=== PATIENT | female | born 2000 | race Caucasian/White ===

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

== ENCOUNTER 2022-06-27 08:07 | Emergency (ER) | payer MEDICAID ==
[~2022-06-27 08:07] MED LIST changes: +ALBU6.7H14 INH; -ALBU6.7H9 INH
[2022-06-27] MEDS ORDERED: dexamethasone sod phosphate 10mg/ml inj IV STA (08:55)
[2022-06-27] MEDS ORDERED: ketorolac trometh inj. 60 MG/2 ML VIAL IM ONE (08:55)
[2022-06-27 09:13] LABS: CLARITY,URINE SLIGHTLY CLOUDY (Clear); COLOR,URINE YELLOW (Yellow); GLUCOSE, URINE NEGATIVE (Neg); KETONES,URINE NEGATIVE (Neg); LEUKOCYTE ESTERASE ,URINE NEGATIVE (Neg); NITRITES, URINE NEGATIVE (Neg); OCCULT BLOOD,URINE NEGATIVE (Neg); PROTEIN,URINE NEGATIVE (Neg); UROBILINOGEN,URINE 0.2 E.U/dL (0.2-1.0)
[2022-06-27 09:15] LABS: URINE HCG NEGATIVE (NEG)
--- NOTE | 2022-06-27 09:16 | NUR ---
off to xray
[2022-06-27 09:17] LABS: UA COLLECTION TYPE CLN CATCH MIDSTREAM
[2022-06-27 09:18] LABS: BACTERIA,URINE NONE SEEN /HPF (Neg); MUCUS STRANDS FEW /LPF (Neg); RBC,URINE NONE SEEN /HPF (0-2); SQUAMOUS EPITHELIAL CELL,UR FEW /LPF (FEW); WBC,URINE NONE SEEN /HPF (0-4)
[2022-06-27] MEDS ORDERED: IBUP-1986 PO ×3 (09:52→10:45)
[2022-06-27] MEDS ORDERED: TRAM1TAB7 PO ×3 (09:52→10:45)
[2022-06-27 10:11] VITALS: BP 124/68
== END 2022-06-27 10:17 | disposition home or self-care (01) ==
LOC: ER 08:08
DX: M54.41 Lumbago with sciatica, right side (principal); M25.551 Pain in right hip; G89.29 Other chronic pain; F31.9 Bipolar disorder, unspecified; Z90.89 Acquired absence of other organs; Z79.899 Other long term (current) drug therapy; Z98.890 Other specified postprocedural states
CPT/HCPCS: 72100; 81001; 81025; 96372; 96374; 99284; J1100; J1885

== ENCOUNTER 2022-08-15 08:11 | Emergency (ER) | payer MEDICAID ==
[~2022-08-15] VITALS: Ht 162.6 cm; Wt 95.0 kg
[~2022-08-15 08:11] MED LIST changes: +IBUP-1986 PO; +TRAM1TAB7 PO
[2022-08-15 08:16] VITALS: BP 130/72
[2022-08-15] MEDS ORDERED: IBUP-1986 PO (09:57)
[2022-08-15] MEDS ORDERED: TRAM50TA2 PO (09:57)
== END 2022-08-15 10:08 | disposition home or self-care (01) ==
LOC: ER 08:11
DX: M79.605 Pain in left leg (principal); G89.29 Other chronic pain; F31.9 Bipolar disorder, unspecified; Z90.89 Acquired absence of other organs; Z79.899 Other long term (current) drug therapy
CPT/HCPCS: 29505; 99283

== ENCOUNTER 2022-09-19 13:32 | Emergency (ER) | payer MEDICAID ==
[~2022-09-19] VITALS: Ht 165.1 cm; Wt 92.0 kg
[2022-09-19 13:37] VITALS: BP 108/68
[2022-09-19 14:10] LABS: CLARITY,URINE CLOUDY (Clear); COLOR,URINE YELLOW (Yellow); GLUCOSE, URINE NEGATIVE (Neg); KETONES,URINE TRACE mg/dl (Neg); LEUKOCYTE ESTERASE ,URINE NEGATIVE (Neg); NITRITES, URINE NEGATIVE (Neg); OCCULT BLOOD,URINE NEGATIVE (Neg); PROTEIN,URINE NEGATIVE (Neg); URINE HCG NEGATIVE (NEG)
[2022-09-19 14:22] LABS: UA COLLECTION TYPE CLN CATCH MIDSTREAM
[2022-09-19 14:23] LABS: MUCUS STRANDS MANY /LPF (Neg); SQUAMOUS EPITHELIAL CELL,UR MANY /LPF (FEW)
[2022-09-19 14:25] LABS: BACTERIA,URINE 2+ /HPF (Neg); RBC,URINE 0-2 /HPF (0-2)
--- NOTE | 2022-09-19 14:27 | NUR ---
URINE REJECTED FOR CULTURE
[2022-09-19 15:12] LABS: BASOPHILS # (AUTO) 0.1 X10'3 (0-0.2); BASOPHILS % (AUTO) 1.4 % (0-1); EOSINOPHILS # (AUTO) 0.2 X10'3 (0-0.9); EOSINOPHILS % (AUTO) 3.3 % (0-6); HEMATOCRIT 43.5 % (35.0-45.0); HEMOGLOBIN 14.4 g/dl (12.0-16.0); LYMPHOCYTES # (AUTO) 2.2 X10'3 (1.1-4.8); LYMPHOCYTES % (AUTO) 38.5 % (21-51); MEAN CORPUSCULAR HEMOGLOBIN 29.2 PG (27.0-31.0); MEAN CORPUSCULAR VOLUME 88.4 FL (78-98); MEAN PLATELET VOLUME 8.9 FL (7.4-10.4); MONOCYTES # (AUTO) 0.3 X10'3 (0-0.9); MONOCYTES % (AUTO) 5.5 % (2-12); NEUTROPHILS % (AUTO) 51.3 % (42-75); PLATELET COUNT 265 X10'3 (140-440); RED BLOOD COUNT 4.92 X10'6 (4.20-5.60); RED CELL DISTRIBUTION WIDTH 14.2 % (11.5-14.5); WHITE BLOOD COUNT 5.8 X10'3 (4.5-11.0)
[2022-09-19 15:29] LABS: ALANINE AMINOTRANSFERASE 14 U/L (12-78); ALBUMIN 4.1 G/DL (3.4-5.0); ALBUMIN/GLOBULIN RATIO 1.2 (1.1-1.5); ANION GAP 8 (8-16); ASPARTATE AMINO TRANSFERASE 13 U/L (10-37); BILIRUBIN,TOTAL 0.6 MG/DL (0.1-1.0); BLOOD UREA NITROGEN 7 MG/DL (7-18); BUN/CREATININE RATIO 7.9 (10.0-20.0); CALCIUM 9.3 MG/DL (8.5-10.1); CHLORIDE 105 MMOL/L (99-107); CREATININE 0.89 MG/DL (0.40-0.90); GLUCOSE 86 MG/DL (70-104); LIPASE 129 U/L (73-393); POTASSIUM 4.5 MMOL/L (3.5-5.1); SODIUM 139 MMOL/L (135-145); TOTAL CARBON DIOXIDE 26.4 MMOL/L (24-32); TOTAL PROTEIN 7.4 G/DL (6.4-8.2); eGFR 81 ML/MIN
[2022-09-19 15:39] LABS: ALKALINE PHOSPHATASE 46 IU/L (20-180)
== END 2022-09-19 16:55 | disposition left against medical advice (07) ==
LOC: ER 13:32
DX: K59.00 Constipation, unspecified (principal); Z53.21 Procedure and treatment not carried out due to patient leaving prior to being seen by health care provider
CPT/HCPCS: 36415; 80053; 81001; 81025; 83690; 85025; 99281

== ENCOUNTER 2022-09-26 15:16 | Emergency (ER) | payer MEDICAID ==
[~2022-09-26] VITALS: Ht 162.6 cm; Wt 86.8 kg
[2022-09-26 15:22] VITALS: BP 93/64
== END 2022-09-26 17:52 | disposition home or self-care (01) ==
LOC: ER 15:17
DX: K59.00 Constipation, unspecified (principal); G89.29 Other chronic pain; F31.9 Bipolar disorder, unspecified; Z90.89 Acquired absence of other organs; Z79.899 Other long term (current) drug therapy
CPT/HCPCS: 74018; 99283

== ENCOUNTER 2023-07-07 08:10 | Emergency (ER) | payer MEDICAID ==
[~2023-07-07] VITALS: Ht 162.6 cm; Wt 97.3 kg
[2023-07-07 09:03] LABS: BASOPHILS # (AUTO) 0.1 X10'3 (0-0.2); EOSINOPHILS # (AUTO) 0.1 X10'3 (0-0.9); HEMATOCRIT 43.7 % (35.0-45.0); HEMOGLOBIN 14.7 g/dl (12.0-16.0); LYMPHOCYTES # (AUTO) 1.8 X10'3 (1.1-4.8); LYMPHOCYTES % (AUTO) 20.4 % (21-51); MEAN CORPUSCULAR HEMOGLOBIN 29.7 PG (27.0-31.0); MEAN CORPUSCULAR HGB CONC 33.6 g/dL (33.0-36.5); MEAN CORPUSCULAR VOLUME 88.4 FL (78-98); MEAN PLATELET VOLUME 8.5 FL (7.4-10.4); MONOCYTES # (AUTO) 0.5 X10'3 (0-0.9); MONOCYTES % (AUTO) 5.6 % (2-12); NEUTROPHILS # (AUTO) 6.4 X10'3 (1.8-7.7); PLATELET COUNT 296 X10'3 (140-440); RED BLOOD COUNT 4.94 X10'6 (4.20-5.60); RED CELL DISTRIBUTION WIDTH 13.5 % (11.5-14.5); WHITE BLOOD COUNT 8.9 X10'3 (4.5-11.0)
[2023-07-07 09:26] LABS: ALANINE AMINOTRANSFERASE 19 U/L (12-78); ALBUMIN 3.7 G/DL (3.4-5.0); ALBUMIN/GLOBULIN RATIO 0.9 (1.1-1.5); ALKALINE PHOSPHATASE 49 IU/L (46-116); ANION GAP 11 (8-16); ASPARTATE AMINO TRANSFERASE 13 U/L (10-37); BILIRUBIN,TOTAL 0.8 MG/DL (0.1-1.0); BLOOD UREA NITROGEN 8 MG/DL (7-18); BUN/CREATININE RATIO 9.8 (10.0-20.0); CALCIUM 8.8 MG/DL (8.5-10.1); CHLORIDE 105 MMOL/L (99-107); CREATININE 0.82 MG/DL (0.40-0.90); GLUCOSE 91 MG/DL (70-104); LIPASE 32 U/L (16-77); POTASSIUM 3.9 MMOL/L (3.5-5.1); SODIUM 141 MMOL/L (135-145); TOTAL CARBON DIOXIDE 25.2 MMOL/L (24-32); TOTAL PROTEIN 7.6 G/DL (6.4-8.2); eCRCL 94 ML/MIN; eGFR 88 ML/MIN
[2023-07-07 10:44] VITALS: BP 118/76; PULSE 84; RESP 16; TEMP 98.8; O2SAT 99
[2023-07-07] MEDS: ondansetron/PF 4mg/2ml inj IV ONE (10:48)
[2023-07-07] MEDS: normal saline 1000ML IV soln IVB ONE (11:32)
[2023-07-07] MEDS: metoclopramide 5 mg/ml inj IV ONE (11:33)
[2023-07-07] MEDS ORDERED: METO5TAB98 PO (11:41)
[2023-07-07] MEDS ORDERED: PANT40SU2 PO (11:41)
[2023-07-07 11:51] LABS: URINE HCG NEGATIVE (NEG)
[2023-07-07 11:57] LABS: BILIRUBIN,URINE NEGATIVE (Neg); CLARITY,URINE CLEAR (Clear); COLOR,URINE YELLOW (Yellow); GLUCOSE, URINE NEGATIVE (Neg); KETONES,URINE NEGATIVE (Neg); LEUKOCYTE ESTERASE ,URINE NEGATIVE (Neg); NITRITES, URINE NEGATIVE (Neg); OCCULT BLOOD,URINE NEGATIVE (Neg); PROTEIN,URINE NEGATIVE (Neg); UROBILINOGEN,URINE 0.2 E.U/dL (0.2-1.0)
[2023-07-07 12:02] LABS: UA COLLECTION TYPE CLN CATCH MIDSTREAM
[2023-07-07] MEDS ORDERED: famotidine 20MG/2.5ML oral suspension PO SCH (20:00)
== END 2023-07-07 12:26 | disposition home or self-care (01) ==
LOC: ER 08:10
DX: R11.2 Nausea with vomiting, unspecified (principal); Z79.899 Other long term (current) drug therapy
CPT/HCPCS: 36415; 80053; 81003; 81025; 83690; 85025; 96361; 96374; 96375; 99284; J2405; J2765; J7030

== ENCOUNTER 2024-07-04 19:47 | Emergency (ER) | payer MEDICAID ==
[~2024-07-04] VITALS: Ht 162.6 cm; Wt 78.6 kg
[~2024-07-04 19:47] MED LIST changes: +PANT40SU2 PO; +TRAM-528 PO; -TRAM1TAB7 PO
[2024-07-04 20:25] LABS: BASOPHILS # (AUTO) 0.1 X10'3 (0-0.2); BASOPHILS % (AUTO) 0.8 % (0-1); EOSINOPHILS # (AUTO) 0.2 X10'3 (0-0.9); HEMATOCRIT 39.6 % (35.0-45.0); HEMOGLOBIN 13.4 g/dl (12.0-16.0); LYMPHOCYTES # (AUTO) 3.7 X10'3 (1.1-4.8); LYMPHOCYTES % (AUTO) 48.7 % (21-51); MEAN CORPUSCULAR HEMOGLOBIN 30.5 PG (27.0-31.0); MEAN CORPUSCULAR HGB CONC 33.7 g/dL (33.0-36.5); MEAN CORPUSCULAR VOLUME 90.3 FL (78-98); MEAN PLATELET VOLUME 8.3 FL (7.4-10.4); MONOCYTES # (AUTO) 0.4 X10'3 (0-0.9); MONOCYTES % (AUTO) 5.1 % (2-12); NEUTROPHILS # (AUTO) 3.3 X10'3 (1.8-7.7); NEUTROPHILS % (AUTO) 43.4 % (42-75); PLATELET COUNT 295 X10'3 (140-440); RED BLOOD COUNT 4.39 X10'6 (4.20-5.60); WHITE BLOOD COUNT 7.5 X10'3 (4.5-11.0)
[2024-07-04 20:34] LABS: ALBUMIN 4.1 G/DL (3.4-5.0); ANION GAP 3 (8-16); BLOOD UREA NITROGEN 7 MG/DL (7-18); BUN/CREATININE RATIO 8.4 (10.0-20.0); CALCIUM 8.5 MG/DL (8.5-10.1); CHLORIDE 108 MMOL/L (99-107); CREATININE 0.83 MG/DL (0.40-0.90); GLUCOSE 90 MG/DL (70-104); LIPASE 38 U/L (16-77); POTASSIUM 3.4 MMOL/L (3.5-5.1); SODIUM 142 MMOL/L (135-145); TOTAL CARBON DIOXIDE 30.9 MMOL/L (24-32); eCRCL 92 ML/MIN; eGFR 86 ML/MIN
[2024-07-04 20:46] VITALS: BP 100/66; PULSE 77; RESP 19; TEMP 96.5; O2SAT 99
[2024-07-04 20:53] LABS: ALANINE AMINOTRANSFERASE 12 U/L (12-78); ALBUMIN/GLOBULIN RATIO 1.4 (1.1-1.5); ALKALINE PHOSPHATASE 48 IU/L (46-116); ASPARTATE AMINO TRANSFERASE 10 U/L (10-37); BILIRUBIN,TOTAL 0.7 MG/DL (0.1-1.0); TOTAL PROTEIN 7.1 G/DL (6.4-8.2)
[2024-07-04 20:59] LABS: URINE HCG NEGATIVE (NEG)
[2024-07-04 21:08] LABS: BILIRUBIN,URINE NEGATIVE (Neg); CLARITY,URINE CLEAR (Clear); COLOR,URINE YELLOW (Yellow); GLUCOSE, URINE NEGATIVE (Neg); KETONES,URINE 40 mg/dl (Neg); LEUKOCYTE ESTERASE ,URINE NEGATIVE (Neg); NITRITES, URINE NEGATIVE (Neg); OCCULT BLOOD,URINE NEGATIVE (Neg); PROTEIN,URINE NEGATIVE (Neg); UROBILINOGEN,URINE 0.2 E.U/dL (0.2-1.0)
[2024-07-04 21:19] LABS: UA COLLECTION TYPE CLN CATCH MIDSTREAM
[2024-07-04] MEDS ORDERED: ONDA-245 PO (21:30)
[2024-07-04] MEDS: ondansetron 4mg rapidly disintigrating tab PO ONE (21:38)
== END 2024-07-04 21:48 | disposition home or self-care (01) ==
LOC: ER 19:47
DX: R10.30 Lower abdominal pain, unspecified (principal); R10.2 Pelvic and perineal pain; F31.9 Bipolar disorder, unspecified; Z90.89 Acquired absence of other organs
CPT/HCPCS: 36415; 80053; 81003; 81025; 83690; 85025; 99283

== ENCOUNTER 2024-11-01 14:44 | Emergency (ER) | payer BC, MEDICAID ==
[~2024-11-01] VITALS: Ht 162.6 cm; Wt 72.1 kg
[~2024-11-01 14:44] MED LIST changes: +ONDA-245 PO
[2024-11-01 14:47] VITALS: BP 119/75; PULSE 95; O2SAT 100
[2024-11-01] MEDS: morphine 4 MG/ML inj SYRINge IM ONE (17:13)
--- NOTE | 2024-11-01 17:21 | Physician Documentation ---
History of Present Illness ~ Chief Complaint: Neck pain Stated Complaint: NECK PAIN Time Seen by MD: 16:25 Primary Medical Doctor: [facility] HPI This 24-year-old female presents with severe neck pain after injuring herself while on a water slide. She states she went down a water slide and unintentionally hyperextended her neck. It is initially she toughed it out but over the last two days she has had increased pain decreased range of motion. She does report some tingling in her tips of her fingers denies numbness. Day of Onset: Nov 01, 2024 Medication Reconciliation Allergies: Coded Allergies: No Known Allergies (Unverified , 11/01/24) Scheduled Albuterol Sulfate (Proventil Hfa), 2 PUFFS INH Q6H Ibuprofen (Ibuprofen), 1 TAB PO Q8H Ibuprofen (Ibuprofen), 1 TAB PO Q8H Nitrofurantoin Monohyd/M-Cryst (Macrobid 100 mg Capsule), 1 CAP PO Q12H Ondansetron 8mg ODT (Ondansetron Odt), 1 TAB PO Q6H Pantoprazole Sodium (Protonix), 40 MG PO DAILY Phenazopyridine HCl (Pyridium), 1 TAB PO Q8H Scheduled PRN Tramadol Hcl/Acetaminophen* (Ultracet*), 1 TAB PO Q6H PRN for pain Past Medical History Past Medical History: Bronchitis, UTI, Chronic Pain, Bipolar, Depression Past Surgical History: tonsillectomy Other Past Surgical History: myringotomy Smoking Status: Never smoker Alcohol Use: None Drug Use: none Lives with: Family Lives In: Home Occupation: child Review of Systems All Other Systems at this time: Reviewed and Negative ROS As stated above in the HPI, otherwise all systems are reviewed and negative. Physical Exam Vital Signs: Temperature: 98.5, Source: Temporal, Heart Rate: 95, Respiratory Rate: 16, BP: 119/75, Pulse Oximetry: 100, Weight: 72.100 Oxygen Flow Rate: 0 Physical Exam General: Alert, no apparent distress. . Neck: Decreased range of motion due to pain, no swelling no deformity Respiratory: Lungs clear, no respiratory distress. Extremities: Normal range of motion, no deformity. Neuro: intact Progress Results/Orders Results/Orders Orders - CHEMA VIDAL NP Ct Cervical Spine (11/01/24 16:35) Completed Orders - CHEMA VIDAL PATROL [employer] LIEUTENANT Ct Cervical Spine (11/01/24 16:35) Morphine 4mg/Ml Inj. (Morphine Inj.) (11/01/24 17:00) Ketorolac Trometh 30mg/Ml Vial (Toradol (11/01/24 17:30) Medications Received in ER Medications (Trade) Dose Ordered Sig/Mirella Route PRN Reason Start Time Stop Time Status Last Admin Dose Admin (morphine inj.) 4 mg ONCE ONCE IM 11/01/24 17:00 11/01/24 17:01 DC 11/01/24 17:13 4 MG (Toradol inj. 30mg/ml) 30 mg ONCE ONCE IM 11/01/24 17:30 11/01/24 17:32 DC 11/01/24 17:58 30 MG Vital Signs 11/01/24 11/01/24 11/01/24 14:47 17:13 17:58 Temp 98.5 Pulse 95 Resp 18 16 16 B/P (MAP) 119/75 Pulse Ox 100 O2 Flow Rate 0 Medical Decision Making Findings Patient's CT was unremarkable for acute fracture. Currently suspecting cervical strain or whiplash. However I do not believe she meets criteria for an emergent MRI at this time. This would be the next step of evaluation which I explained to the patient. Offered muscle relaxers which she agreed to Differential Dx:Considerations: Include: Cervical muscle spasm, Discitis, DJD, Meningitis, Thyroiditis, Torticollis, Vertebral artery dissect., Other Departure Impression: Primary Impression: Neck pain Additional Impressions: Strain of neck muscle Whiplash injury to neck Condition: Stable Discharge Instructions: Whiplash, Cervical Sprain Additional Instructions: If your symptoms do persist beyond a week I recommend following up with primary care and requested an MRI. You may also benefit from a referral to physical therapy to help with the your symptoms Referrals: NO PRIMARY CARE PROVIDER (PCP) Prescriptions Cyclobenzaprine HCl (Cyclobenzaprine HCl) 10 Mg Tablet 1 TAB PO Q8H for muscle spasms for 10 Days, #30 TAB Prov: CHEMA VIDAL [employer] 11/01/24 Education Educated: Patient Educated regarding: diagnosis Signature Scribe Signature: f Attestation: Scribed for Chema Vidal Quality Control Associate by Chema Vidal - KRISTOPHER . 11/01/24 18:16 CHEMA VIDAL NP Nov 01, 2024 17:21
--- NOTE | 2024-11-01 17:49 | RADIOLOGY REPORT ---
EXAM: CT CT CERVICAL SPINE INDICATION: hyperextension injury EXAM DATE: 11/01/2024 05:01 PM COMPARISON: None TECHNIQUE: Multiple axial CT images of the cervical spine were obtained using bone algorithm. Axial a nd coronal reformatting was done. Bone and soft tissue windows were reviewed. Radiation Dose Information: CT Dose: CTDI volume is 18.4 mGy. Dose-length product is 389 mGy*cm FINDINGS: The cervical alignment is intact. No acute cervical spine fracture is identified. The vertebral body heights are intact. No suspicious osseous lesions are identified. No significant degenerative changes are identified. There is no prevertebral soft tissue swelling. IMPRESSION: 1. No evidence of acute cervical spine fracture or traumatic malalignment. All CT scans at this medical facility are performed using dose modulation techniques as appropriate t o a performed exam including the following: Automated exposure control was utilized; adjustment of th e MA and/or KV according to patient size; and use of iterative reconstruction technique.
[2024-11-01 17:58] VITALS: RESP 16
[2024-11-01] MEDS: ketorolac trometh 30MG/ML vial 30 MG/ML VIAL IM ONE (17:58)
[2024-11-01] MEDS ORDERED: CYCL-394 PO (18:15)
[2024-11-01 18:29] VITALS: TEMP 98.5
== END 2024-11-02 07:51 | disposition home or self-care (01) ==
LOC: ER 14:45
DX: S16.1XXA Strain of muscle, fascia and tendon at neck level, initial encounter (principal); S13.4XXA Sprain of ligaments of cervical spine, initial encounter; F31.9 Bipolar disorder, unspecified; Z79.899 Other long term (current) drug therapy; X50.1XXA Overexertion from prolonged static or awkward postures, initial encounter; Y93.89 Activity, other specified; Y92.89 Other specified places as the place of occurrence of the external cause; Y99.8 Other external cause status
CPT/HCPCS: 72125; 96372; 99285; J1885; J2270

== ENCOUNTER 2025-01-15 10:36 | Emergency (ER) | payer BC, MEDICAID ==
[~2025-01-15] VITALS: Ht 163.8 cm; Wt 67.7 kg
[2025-01-15 11:20] LABS: MEAN PLATELET VOLUME 8.1 FL (7.4-10.4); RED CELL DISTRIBUTION WIDTH 13.4 % (11.5-14.5)
[2025-01-15 11:29] LABS: URINE HCG NEGATIVE (NEG)
[2025-01-15 11:30] LABS: LEUKOCYTE ESTERASE ,URINE NEGATIVE (Neg); NITRITES, URINE NEGATIVE (Neg); OCCULT BLOOD,URINE NEGATIVE (Neg)
[2025-01-15 11:34] LABS: UA COLLECTION TYPE CLN CATCH MIDSTREAM
[2025-01-15 11:39] LABS: CREATININE 0.80 MG/DL (0.40-0.90); TOTAL CARBON DIOXIDE 29.2 MMOL/L (24-32); eCRCL 97 ML/MIN; eGFR 90 ML/MIN
--- NOTE | 2025-01-15 12:12 | Physician Documentation ---
History of Present Illness Chief Complaint: Abdominal Pain Stated Complaint: ABDOMINAL PAIN Primary Medical Doctor: [facility] REPLACED BY [facility] HPI This is a 24-year-old female who presents with three days of progressively worsening abdominal pain beginning in her periumbilical area and spreading to her right lower quadrant and epigastric region, patient reports pain is worse with walking or any bumps reporting every bump in the car on the way over made it hurt. Patient denies any fevers. Denies any recent history of constipation.. States that she was seen at her urgent care and was advised to come to the ER for evaluation appendicitis Medication Reconciliation Allergies: Coded Allergies: No Known Allergies (Unverified , 01/15/25) Scheduled Albuterol Sulfate (Proventil Hfa), 2 PUFFS INH Q6H Ibuprofen (Ibuprofen), 1 TAB PO Q8H Ibuprofen (Ibuprofen), 1 TAB PO Q8H Nitrofurantoin Monohyd/M-Cryst (Macrobid 100 mg Capsule), 1 CAP PO Q12H Ondansetron 8mg ODT (Ondansetron Odt), 1 TAB PO Q6H Pantoprazole Sodium (Protonix), 40 MG PO DAILY Phenazopyridine HCl (Pyridium), 1 TAB PO Q8H Scheduled PRN Tramadol Hcl/Acetaminophen* (Ultracet*), 1 TAB PO Q6H PRN for pain Past Medical History Past Medical History: Bronchitis, UTI, Chronic Pain, Bipolar, Depression Past Surgical History: tonsillectomy Other Past Surgical History: myringotomy Alcohol Use: None Drug Use: none Lives with: Family Lives In: Home Occupation: child Review of Systems ROS As stated above in the HPI, otherwise all systems are reviewed and negative. Physical Exam Vital Signs: Temperature: 97.6, Source: Oral, Heart Rate: 93, Respiratory Rate: 17, BP: 111/64, Pulse Oximetry: 100, Weight: 67.730 Physical Exam VITALS: Reviewed and as above. GENERAL: Alert, nontoxic appearing, no apparent distress. HEENT: RESPIRATORY: No increased work of breathing, no respiratory distress, speaking in full clear sentences CHEST: CV: BACK: GI: Positive rosving, nnegative rebound tenderness in the right lower quadrant MUSCULOSKELETAL: SKIN: NEURO: PSYCH: Progress Results/Orders Results/Orders Orders - CHRISTEN,RG W HAIR WORKER Us Non Vascular (01/15/25 ) Vital Signs 01/15/25 10:44 Temp 97.6 Pulse 93 Resp 17 B/P (MAP) 111/64 Pulse Ox 100 Laboratory Tests Test 01/15/25 10:48 01/15/25 11:01 Urine Specimen Description Cln catch midstream Urine Color Yellow Urine Clarity Clear Urine pH 5.5 Urine Specific Shannon <=1.005 Urine Protein Negative Urine Glucose (UA) Negative Urine Ketones Negative Urine Occult Blood Negative Urine Nitrite Negative Urine Bilirubin Negative Urine Urobilinogen 0.2 Urine Leukocyte Esterase Negative Urine Culture Indicated Not ind Volume Urine Centrifuged 10 ml Urine HCG, Qualitative Negative Urine Comment White Blood Count 5.6 Red Blood Count 4.47 Hemoglobin 13.4 Hematocrit 40.2 Mean Corpuscular Volume 90.0 Mean Corpuscular Hemoglobin 29.9 Mean Corpuscular Hemoglobin Concent 33.2 Red Cell Distribution Width 13.4 Platelet Count 265 Mean Platelet Volume 8.1 Neutrophils (%) (Auto) 52.7 Lymphocytes (%) (Auto) 39.3 Monocytes (%) (Auto) 4.8 Eosinophils (%) (Auto) 2.5 Basophils (%) (Auto) 0.7 Neutrophils # (Auto) 2.9 Lymphocytes # (Auto) 2.2 Monocytes # (Auto) 0.3 Eosinophils # (Auto) 0.1 Basophils # (Auto) 0.0 CBC Comment Sodium Level 142 Potassium Level 4.1 Chloride Level 105 Carbon Dioxide Level 29.2 Anion Gap 8 Blood Urea Nitrogen 10 Creatinine 0.80 Estimated GFR/1.73 m2 90 BUN/Creatinine Ratio 12.5 Glucose Level 85 Calcium Level 9.1 Total Bilirubin 0.8 Aspartate Amino Transf (AST/SGOT) 10 Alanine Aminotransferase (ALT/SGPT) 14 Alkaline Phosphatase 41 L Total Protein 7.5 Albumin 4.2 Globulin 3.3 Albumin/Globulin Ratio 1.3 Lipase 53 Chemistry Comments Medical Decision Making Findings MSE performed in triage and patient returned to ED lobby by nursing staff to await available ED room. Labs and ultrasound ordered to be completed from lobby. This 24-year-old female initially presented with concerns of her pelvic pain and right lower quadrant pain. Ultrasound indicated there was no evidence of ovarian torsion there was good flow to both ovaries. CT abdomen and pelvis indicated there was no signs of appendicitis however they did make note of significant constipation Departure Disposition: 01 HOME / SELF CARE / HOMELESS Impression: Primary Impression: Constipation Condition: Improved Discharge Instructions: Constipation, Adult, [id number] Additional Instructions: You were evaluated for both ovarian and appendix pathology both of which were benign you did show evidence of gross constipation via your CT.. At this time I am going to discharge you with advice to maintain adequate hydration and take MiraLax until he started having regular stools Referrals: NO PRIMARY CARE PROVIDER (PCP) Prescriptions Polyethylene Glycol 3350* (Miralax*) 1 Packet Packet 1 PKT PO DAILY for constipation for 2 Days, #2 PKT dissolve in water Prov: WILFREDO VIDAL NP 01/15/25 Education Educated: Patient Signature Scribe Signature: f Attestation: Scribed for Wilfredo Vidal Bacteriology Professor by Wilfredo Vidal - KRISTOPHER . 01/15/25 12:51 RG VELÁSQUEZ HAIR WORKER Jan 15, 2025 12:12 WILFREDO VIDAL NP Jan 15, 2025 12:52
--- NOTE | 2025-01-15 13:03 | RADIOLOGY REPORT ---
INDICATION: Right Lower Abd/Pelvic Pain TECHNIQUE: Multiple real-time grayscale transabdominal sonographic images along with color and duplex Doppler of the uterus and ovaries were obtained. COMPARISON: None FINDINGS: The uterus measures 6.5 x 2.5 x 4.5 cm. The endometrial stripe measures 0.3 cm. Intrauterine device in satisfactory position. Right ovary measures 2.9 x 1.8 x 2.2 cm with normal Doppler color flow Left ovary measures 4.0 x 2.1 x 2.8 cm with normal Doppler color flow IMPRESSION: Intrauterine device in satisfactory position.
--- NOTE | 2025-01-15 13:03 | RADIOLOGY REPORT ---
INDICATION: RIGHT LOWER QUAD PAIN TECHNIQUE: Graded compression technique along with Multiple real-time sonographic images were obtained for evaluation of the right lower quadrant. FINDINGS: The appendix was not visualized. No free fluid or lymph nodes are seen on this exam. IMPRESSION: 1.Nonvisualization of the appendix, thus cannot exclude appendicitis.
[2025-01-15] MEDS ORDERED: iohexol 300mg/ml 100ml inj. ONE (13:16)
[2025-01-15] MEDS: ondansetron/PF 4mg/2ml inj IV ONE (15:21)
[2025-01-15] MEDS: morphine 4 MG/ML inj SYRINge IV ONE (15:21)
[2025-01-15] MEDS: normal saline 1000ML IV soln IVB ONE (15:21)
--- NOTE | 2025-01-15 15:23 | RADIOLOGY REPORT ---
CLINICAL HISTORY: RLQ pain TECHNIQUE: CT of the abdomen and pelvis was performed with IV contrast. This exam was performed according to our departmental dose optimization program. Up-to-date CT equipment and radiation dose reduction techniques are utilized as appropriate. CTDI 10.3 DLP 571 COMPARISON: None FINDINGS: Abdomen/Pelvis: The spleen, pancreas, adrenal glands, kidneys, gallbladder, liver, and bladder are unremarkable. An IUD is noted. The abdominal aorta is normal in course and caliber. There are no significant atherosclerotic calcifications. There is no free intraperitoneal air or fluid. There is no enlarged abdominal or pelvic lymph node. There is no bowel wall thickening or dilatation. There is a [id number] amount of stool in the colon. The appendix is not seen with certainty. There is no focal inflammatory process in its expected location. Other: The imaged lower thorax is unremarkable. No acute osseous abnormality is evident. IMPRESSION: No acute CT abnormality in the abdomen or pelvis. Constipation.
[2025-01-15] MEDS ORDERED: POLY17PO10 PO (15:39)
[2025-01-15] MEDS: magnesium citrate 296ml oral solution PO ONE (16:28)
[2025-01-15 16:32] VITALS: BP 110/70; PULSE 92; RESP 16; TEMP 98; O2SAT 98
== END 2025-01-15 16:34 | disposition home or self-care (01) ==
LOC: ER 10:36
DX: K59.00 Constipation, unspecified (principal); F31.9 Bipolar disorder, unspecified; G89.29 Other chronic pain; Z87.440 Personal history of urinary (tract) infections; Z90.89 Acquired absence of other organs; Z79.899 Other long term (current) drug therapy
CPT/HCPCS: 36415; 74177; 76705; 76856; 80053; 81003; 81025; 83690; 85025; 93976; 96361; 96374; 96375; 99285; J2270; J2405; J7030; Q9967

== ENCOUNTER 2025-04-05 18:01 | Emergency (ER) | payer BC, MEDICAID ==
[~2025-04-05] VITALS: Ht 162.6 cm; Wt 65.5 kg
[2025-04-05 18:34] VITALS: BP 125/63; PULSE 98; RESP 15; TEMP 97.6; O2SAT 98
[2025-04-05 19:30] LABS: URINE HCG NEGATIVE (NEG)
[2025-04-05 19:42] LABS: UA COLLECTION TYPE CLN CATCH MIDSTREAM
[2025-04-05 19:48] LABS: MUCUS STRANDS FEW /LPF (Neg); SQUAMOUS EPITHELIAL CELL,UR FEW /LPF (FEW)
--- NOTE | 2025-04-05 19:50 | Physician Documentation ---
History of Present Illness ~ Chief Complaint: STD Stated Complaint: MULTIPLE MED COMPLAINTS Primary Medical Doctor: [facility] HPI Patient is a 24-year-old female that presents to the emergency department for evaluation for concern of STI. Patient reports that she had sexual contact with a partner that was known to have an STI but told her that he had been treated and cleared up. Patient reports she has had discomfort in her vagina with discharge a foul-smelling and lower abdominal discomfort starting approximately a week after the sexual contacts. Patient denies fever chills nausea vomiting diarrhea at this time. Medication Reconciliation Allergies: Coded Allergies: No Known Allergies (Unverified , 04/05/25) Scheduled Albuterol Sulfate (Proventil Hfa), 2 PUFFS INH Q6H Ibuprofen (Ibuprofen), 1 TAB PO Q8H Ibuprofen (Ibuprofen), 1 TAB PO Q8H Nitrofurantoin Monohyd/M-Cryst (Macrobid 100 mg Capsule), 1 CAP PO Q12H Ondansetron 8mg ODT (Ondansetron Odt), 1 TAB PO Q6H Pantoprazole Sodium (Protonix), 40 MG PO DAILY Phenazopyridine HCl (Pyridium), 1 TAB PO Q8H Scheduled PRN Tramadol Hcl/Acetaminophen* (Ultracet*), 1 TAB PO Q6H PRN for pain Past Medical History Past Medical History: Bronchitis, UTI, Chronic Pain, Bipolar, Depression Past Surgical History: tonsillectomy Other Past Surgical History: myringotomy Alcohol Use: None Drug Use: none Lives with: Family Lives In: Home Occupation: child Review of Systems ROS As stated above in the HPI, otherwise all systems are reviewed and negative. Physical Exam Vital Signs: Temperature: 97.6, Source: Temporal, Heart Rate: 98, Respiratory Rate: 15, BP: 125/63, Pulse Oximetry: 98, Weight: 65.500 Physical Exam VITALS: Reviewed and as above. GENERAL: Alert, no apparent distress. : Discharge, foul odor, urethral burning, lower abdominal discomfort. SKIN: Warm and dry, no rash NEURO: Oriented x4, No motor or sensory deficit PSYCH: Normal mood and affect, no agitation Progress Results/Orders Results/Orders Orders - GINNA BILL BRAND MANAGER Chlam/Gc Amp Ur (04/05/25 18:49) Ua W/Microscopic, Cult If Ind (04/05/25 19:05) Completed Orders - GINNA BILL BRAND MANAGER Hcg, Ur Ql (04/05/25 18:38) Vital Signs 04/05/25 18:34 Temp 97.6 Pulse 98 Resp 15 B/P (MAP) 125/63 Pulse Ox 98 Laboratory Tests Test 04/05/25 19:05 Urine Specimen Description Cln catch midstream Urine Color Crowell Urine Clarity Slightly cloudy Urine pH Urine Specific St[place] Urine Protein Urine Glucose (UA) Urine Ketones Urine Occult Blood Urine Nitrite Urine Bilirubin Urine Urobilinogen Urine Leukocyte Esterase Urine HCG, Qualitative Negative Urine Comment Medical Decision Making Additional information obtaine: other Findings Chief Complaint: Vaginal discomfort, foul-smelling discharge, and lower abdominal discomfort following sexual contact with partner known to have STI. History of Present Illness: 24-year-old female presented to the emergency department with vaginal discomfort, foul-smelling discharge, and lower abdominal discomfort beginning approximately one week after sexual contact with a partner known to have a sexually transmitted infection. Partner reportedly stated he had been treated and cleared. Patient denies fever, chills, nausea, vomiting, or diarrhea. Medical Decision-Making: Number of Diagnoses/Management Options: Moderate complexity. Differential diagnosis includes cervicitis (chlamydia, gonorrhea), bacterial vaginosis, trichomoniasis, and possible early pelvic inflammatory disease. Amount/Complexity of Data: Limited. Clinical presentation and history of high- risk sexual exposure. Risk of Complications: Moderate. Patient is at high risk for STI given age <25 years and recent sexual contact with infected partner. Untreated cervicitis can progress to pelvic inflammatory disease with potential long-term sequelae including infertility, ectopic , and chronic pelvic pain. [1][4-5] Clinical Reasoning: Given the patient's age, recent high-risk sexual exposure, and clinical presentation consistent with cervicitis, presumptive treatment for both chlamydia and gonorrhea is indicated. The CDC recommends empiric antimicrobial therapy for women at increased risk (age <25 years, new sex partner, or sex partner with STI) when follow-up cannot be ensured or when testing is not immediately available. [1-2] Treatment Rationale: Ceftriaxone 1 gram IM: Provides coverage for Neisseria gonorrhoeae. The 1-gram dose is appropriate for uncomplicated gonococcal infections. [2-3] Azithromycin 1 gram PO: Single-dose treatment option for Chlamydia trachomatis, though doxycycline is now preferred first-line therapy due to superior efficacy, particularly at rectal sites. [2-3][6] Doxycycline 100 mg PO BID for 10 days: First-line treatment for chlamydial cervicitis with consistent effectiveness at urogenital, rectal, and pharyngeal sites. The 7-day course is standard, though 10-day course was prescribed for this patient. [1-3][6] The combination of ceftriaxone plus doxycycline provides comprehensive coverage for the most common causes of cervicitis in this high-risk patient. [1][3] Disposition and Follow-up: Patient instructed to abstain from sexual intercourse for 7 days after completing treatment and until asymptomatic. [2-3] Retest in 3 months recommended due to high rates of reinfection. [1] Follow-up with primary care provider for test results if obtained and to ensure resolution of symptoms. [1] Partner notification and treatment strongly recommended to prevent reinfection. [2-3] Return to emergency department if symptoms worsen, recur, or if fever, severe a bdominal pain, or other concerning symptoms develop. Overall Medical Decision-Making Complexity: Moderate Urinary Diff Dx:Considerations: Include: AAA, , Aortic dissection, Appendicitis, Bowel obstruction, Cholelithiasis, Choleangitis, DJD, Ectopic , Hepatitis, HNP, Impaction, Intrauterine , Musculoskeletal pain, Ovarian torsion, Pancreatitis, PID, Post-Op complication, Pyelonephritis, Renal failure, Strain, Urinary Obstruction, Urolithiasis, Urinary retention, UTI, Vaginitis, Other Genital Diff Dx:Considerations: Include: -Complete, - Incomplete, -Inevitable, Ablortion-Missed, -Threatened, Abruptio placentae, Bartholin abscess, Bartholin cyst, Blood loss anemia, Constipation, Cervicitis, Dsymenorrhea, Ectopic , Foreign body, Hormonal, Hidradenitis suppurativa, Intrauterine , Menorrhagia, Menometrorrhagia, Menstrual bleeding, Myomatous uterus, Perianal abscess, Physiologic discharge, Pinworms, PID, Placenta previa, , Precipitous Hct, Trauma, UTI, Vaginitis(osis)-Atrophic, Vaginitis, Vaginitis(osis)-Bacterial, Vaginitis(osis)- Candidal, Vaginitis(osis)-Contact, Vaginitis(osis)-Herpes, Vaginitis(osis)- Trich., Other Departure Disposition: 01 HOME / SELF CARE / HOMELESS Impression: Primary Impression: Sexually transmitted disease Condition: Stable Discharge Instructions: Sexually Transmitted Disease Additional Instructions: Your Diagnosis You were treated today for a possible sexually transmitted infection (STI). Based on your symptoms and recent sexual contact with a partner who had an STI, you received antibiotics to treat the most common infections: chlamydia and gonorrhea. [1][4] Your Medications You received the following treatments today: Ceftriaxone (Rocephin) - 1 gram injection given in the emergency department Azithromycin - 1 gram taken by mouth in the emergency department Doxycycline - 100 mg tablets to take by mouth twice daily for 10 days How to Take Your Doxycycline Take one tablet (100 mg) twice a day - once in the morning and once in the evening [1][4] Take all 10 days of the medication, even if you start feeling better [4] Take with food and a full glass of water to prevent stomach upset Do not lie down for at least 30 minutes after taking the medication It is very important to [employer] this prescription and complete the full course to ensure the infection is fully treated [5] Sexual Activity Restrictions Do not have any sexual contact (vaginal, oral, or anal) for 7 days after you finish all your antibiotics AND until your symptoms are completely gone [1-2] This means you should avoid sexual contact for at least 17 days total (10 days of treatment plus 7 additional days) [1] Having sex before treatment is complete can spread the infection to your partner and may cause you to get infected again [2] Partner Notification and Treatment All sexual partners from the past 60 days need to be treated, even if they don't have symptoms [2][4] Your partners should see a doctor or may be able to get treatment without an office visit in some states Your partners should also avoid sexual contact until they complete treatment [1] If you haven't had a partner in the past 60 days, your most recent partner should still be treated [4] Follow-Up Care Schedule an appointment with your primary care doctor to review your test results and make sure your symptoms have resolved [1] You will need to be retested in 3 months because reinfection is common, even if you feel completely better [1-2] At your follow-up visit, you should also be tested for HIV and syphilis [1][6] When to Return to the Emergency Department Come back to the emergency department or seek immediate medical care if you develop: Fever (temperature over 100.4F or 38C) Severe lower abdominal or pelvic pain Worsening vaginal discharge or odor Nausea or vomiting Symptoms that don't improve after completing your antibiotics Any other concerning symptoms Important Reminders Untreated STIs can lead to serious health problems, including pelvic inflammatory disease, which can cause chronic pain and difficulty getting p regnant in the future [7-8] Using condoms consistently can reduce your risk of getting STIs in the future [3] Regular STI screening is recommended for sexually active women under age 25 [1][9] Questions? If you have questions about your medications or treatment, contact your primary care doctor or call the emergency department. Referrals: NO PRIMARY CARE PROVIDER (PCP) Prescriptions Doxycycline Hyclate (Doxycycline Hyclate) 100 Mg Capsule 1 CAP PO Q12H for 10 Days, #20 CAP Prov: GINNA BILL 04/05/25 Education Educated: Patient Educated regarding: diagnosis, treatment, need for follow up Signature Scribe Signature: A Attestation: Scribed for Solitario Oliva Pac by DEEPTHI Barbosa . 04/05/25 19:55 GINNA BILL Apr 05, 2025 19:50
[2025-04-05] MEDS ORDERED: DOXY-1 PO (19:53)
[2025-04-05] MEDS: CefTRIAXone 1000mg IM Kit (w/lidocaine diluent) IM ONE (20:09)
== END 2025-04-05 20:18 | disposition home or self-care (01) ==
LOC: ER 18:02
DX: A64 Unspecified sexually transmitted disease (principal); G89.29 Other chronic pain; F31.9 Bipolar disorder, unspecified; Z79.899 Other long term (current) drug therapy
CPT/HCPCS: 36415; 81001; 81025; 87088; 87491; 96372; 99283; J0696